=== PATIENT | female | born 1995 | race American Indian/Alaskan Native ===

== ENCOUNTER 2017-06-16 02:51 | Emergency (ER) | payer SELFPAY ==
[2017-06-16 03:38] LABS: CHLORIDE,CL 110 mmol/L (98-110); SODIUM,NA 139 mmol/L (136-146)
[2017-06-16] MEDS ORDERED: Amoxicillin 500 MG Cap PO ONE (04:01)
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
== END 2017-06-16 04:57 | disposition home or self-care (01) ==
LOC: MW.ED 02:51
DX: Z04.1 Encounter for examination and observation following transport accident (principal); O23.41 Unspecified infection of urinary tract in pregnancy, first trimester; Z3A.01 Less than 8 weeks gestation of pregnancy; V49.9XXA Car occupant (driver) (passenger) injured in unspecified traffic accident, initial encounter; Y92.488 Other paved roadways as the place of occurrence of the external cause
CPT/HCPCS: 36415; 80053; 81001; 84702; 85025; 86900; 86901; 87086; 99284; A9270; 99282